=== PATIENT | male | born 1970 | race Caucasian/White ===

== ENCOUNTER 2016-06-07 18:27 | Emergency (ER) | payer BC ==
--- NOTE | 2016-06-19 10:17 | ER ---
ADMIT: 06/07/2016 RM/LOC: ER [facility] MR#: [id number] [place], [place] [id number] MEL HAWKINS [address] [place] [address] Emergency Room Report SEX: M AGE: 45 : 1970 DATE: 06/07/2016 ADDENDUM: CHIEF COMPLAINT: Dark stools. HISTORY OF PRESENT ILLNESS: This is a 45-year-old who just got back from [place] on Saturday. He has had dark stools started today, but has had diarrhea since Saturday. While here, he did have a bowel movement. We did a Hemoccult, C and S, O and P, C. diff, and Giardia. His white count is normal. His hemoglobin is 13.4. CMP is normal. CLINICAL IMPRESSION: Diarrhea. DIAGNOSIS: Abdominal pain with diarrhea with recent travel to [place]. TRIXIE Steinberg / Diony Betts MD / michellel JOB #: [id number] CC: Saeed Serrano MD, Attending Physician Jovon Gaspar MD, Family Physician
== END 2016-06-07 20:40 | disposition home or self-care (01) ==
LOC: ER 18:27
DX: R10.9 Unspecified abdominal pain (principal); R19.7 Diarrhea, unspecified